=== PATIENT | male | born 1925 | race Caucasian/White ===

== ENCOUNTER → 2016-07-07 | Outpatient (CLI) | payer MEDICARE, OTHER ==
[~2016-07-07] MED LIST: ATOR10TA PO; BIMA2.5D OP; CLON-364 PO; DORZ10DR7 OP; FINA5TAB4 PO; FURO-92 PO; IPRA15SP INH; LISI5TAB7 PO; MECL25TA4 PO; POLY17PO5 PO; SERT50TA5 PO; TEST200V21 INJ; VARD20TA2 PO; WARF5TAB7 PO
== END | disposition home or self-care (01) ==
LOC: CVU 15:03
PROVIDERS: ATTEND Internal Medicine Cardiovascular Disease
DX: I08.3 Combined rheumatic disorders of mitral, aortic and tricuspid valves (principal); I51.7 Cardiomegaly; I37.1 Nonrheumatic pulmonary valve insufficiency; L97.524 Non-pressure chronic ulcer of other part of left foot with necrosis of bone
CPT/HCPCS: 93306; 93925

== ENCOUNTER 2016-07-25 16:34 | Inpatient (IN) | payer MEDICARE, OTHER ==
[2016-07-24 23:00] VITALS: BP 156/90
[~2016-07-25] VITALS: Ht 182.9 cm; Wt 66.9 kg
[2016-07-25] MEDS ORDERED: SODIUM CHLORIDE FLUSH 10ML SYR IVF ONE (17:00)
[2016-07-25 18:55] LABS: BLOOD UREA NITROGEN 17 mg/dL (7-18)
[2016-07-25 19:01] LABS: ASPARTATE AMINO TRANSFERASE 22 U/L (15-37)
[2016-07-25 19:02] LABS: IS PT STATUS REG ER OR PRE ER? YES
[2016-07-25] MEDS ORDERED: ARICEPT (19:43)
[2016-07-25] MEDS ORDERED: DONE10TA30 PO (19:43)
[2016-07-25] MEDS ORDERED: APIX5TAB PO (19:43)
[2016-07-25] MEDS ORDERED: POLYETHYLENE GLYCOL 17 GM PACKET PO PRN (21:00)
[2016-07-25] MEDS ORDERED: VARDENAFIL HCL 20 MG PO SCH ×2 (21:00→22:12)
[2016-07-25] MEDS ORDERED: TESTOSTERONE ENANTHATE INJ SCH (21:00)
[2016-07-25] MEDS ORDERED: ACETAMINOPHEN 325 MG TABLET PO PRN (21:00)
[2016-07-25] MEDS ORDERED: BISACODYL 10 MG SUPP PR PRN (21:00)
[2016-07-25] MEDS ORDERED: ONDANSETRON 2MG/ML, 2ML IVPush PRN (21:00)
[2016-07-25] MEDS ORDERED: DIAZEPAM 2 MG TABLET PO PRN (21:00)
[2016-07-25] MEDS: SODIUM CHLORIDE FLUSH 3ML SYRINGE IVF SCH (21:00)
[2016-07-25] MEDS ORDERED: TEMPLATE NON-FORMULARY MED. (Dorzolamide Hcl/Timolol Maleat (Dorzolamide-Timolol Eye Drops OP SCH (21:00)
[2016-07-25] MEDS ORDERED: MECLIZINE 12.5 MG TABLET PO PRN (21:00)
[2016-07-25] MEDS: IPRATROPIUM NASAL 0.03%, 30ML NAS SCH (21:00)
[2016-07-25] MEDS ORDERED: POLYETHYLENE GLYCOL 17 GM PACKET PO SCH (21:00)
[2016-07-25 23:00] VITALS: BP 156/90
[2016-07-26] MEDS: APIXABAN 5 MG TABLET PO SCH ×3 (00:17→21:18)
[2016-07-26] MEDS: ATORVASTATIN 10 MG TABLET PO SCH ×2 (00:17→21:18)
[2016-07-26] MEDS: DONEPEZIL 10 MG TABLET PO SCH ×2 (00:17→21:18)
[2016-07-26 02:00] VITALS: BP 102/63
[2016-07-26] MEDS ORDERED: ASPIRIN 325 MG TABLET EC PO SCH (06:00)
[2016-07-26 06:19] LABS: BLOOD UREA NITROGEN 16 mg/dL (7-18)
[2016-07-26 06:23] LABS: ASPARTATE AMINO TRANSFERASE 16 U/L (15-37)
[2016-07-26 07:24] VITALS: BP 142/87
[2016-07-26] MEDS: TEMPLATE NON-FORMULARY MED. (Dorzolamide Hcl/Timolol Maleat (Dorzolamide-Timolol Eye Drops OP SCH ×2 (09:00→20:35)
[2016-07-26] MEDS: SODIUM CHLORIDE FLUSH 3ML SYRINGE IVF SCH ×2 (09:00→21:00)
[2016-07-26] MEDS: SERTRALINE 50MG TABLET PO SCH (09:06)
[2016-07-26] MEDS: LISINOPRIL 5 MG TABLET PO SCH (09:06)
[2016-07-26] MEDS: FUROSEMIDE 40 MG TABLET PO SCH (09:06)
[2016-07-26] MEDS: FINASTERIDE 5 MG TABLET PO SCH (09:06)
[2016-07-26] MEDS: SENNA/DOCUSATE TABLET PO SCH (09:06)
[2016-07-26] MEDS: IPRATROPIUM NASAL 0.03%, 30ML NAS SCH ×2 (10:10→21:19)
[2016-07-26] MEDS: LATANOPROST OPHTH 0.005%, 2.5ML OP SCH (10:11)
[2016-07-26 12:40] VITALS: BP 156/91
[2016-07-26] MEDS ORDERED: CARB1TAB PO (14:43)
[2016-07-26] MEDS: CARBIDOPA/LEVODOPA 10 MG/100 MG TABLET PO SCH ×2 (15:41→21:18)
[2016-07-26 16:51] LABS: IS PT STATUS REG ER OR PRE ER? NO
[2016-07-26 18:43] VITALS: BP 152/78
[2016-07-26 21:44] LABS: IS PT STATUS REG ER OR PRE ER? NO
[2016-07-27 05:01] VITALS: BP 136/85
[2016-07-27 06:44] LABS: BLOOD UREA NITROGEN 17 mg/dL (7-18)
[2016-07-27 06:48] LABS: ASPARTATE AMINO TRANSFERASE 16 U/L (15-37)
[2016-07-27 07:43] VITALS: BP 140/84
[2016-07-27] MEDS: IPRATROPIUM NASAL 0.03%, 30ML NAS SCH ×2 (08:02→21:19)
[2016-07-27] MEDS: SODIUM CHLORIDE FLUSH 3ML SYRINGE IVF SCH ×2 (08:03→21:20)
[2016-07-27] MEDS: LATANOPROST OPHTH 0.005%, 2.5ML OP SCH (08:03)
[2016-07-27] MEDS: CARBIDOPA/LEVODOPA 10 MG/100 MG TABLET PO SCH (08:04)
[2016-07-27] MEDS: APIXABAN 5 MG TABLET PO SCH ×2 (08:05→21:16)
[2016-07-27] MEDS: LISINOPRIL 5 MG TABLET PO SCH (08:05)
[2016-07-27] MEDS: FUROSEMIDE 40 MG TABLET PO SCH (08:06)
[2016-07-27] MEDS: FINASTERIDE 5 MG TABLET PO SCH (08:07)
[2016-07-27] MEDS: SENNA/DOCUSATE TABLET PO SCH (08:07)
[2016-07-27] MEDS: SERTRALINE 50MG TABLET PO SCH (08:07)
[2016-07-27] MEDS: TEMPLATE NON-FORMULARY MED. (Dorzolamide Hcl/Timolol Maleat (Dorzolamide-Timolol Eye Drops OP SCH ×2 (08:09→21:19)
[2016-07-27 14:50] VITALS: BP 157/91
[2016-07-27] MEDS: SODIUM CHLORIDE 0.9% 1,000 ML IV SCH (16:01)
[2016-07-27] MEDS: LACTOBACILLUS CHEW TABLET PO SCH ×2 (16:20→21:17)
[2016-07-27] MEDS: CARBIDOPA/LEVODOPA 25 MG/100 MG TABLET PO SCH ×2 (16:22→21:16)
[2016-07-27 19:45] VITALS: BP 120/65
[2016-07-27] MEDS ORDERED: CARBIDOPA/LEVODOPA CR 25 MG/100 MG TABLET PO SCH (21:00)
[2016-07-27] MEDS: DONEPEZIL 10 MG TABLET PO SCH (21:16)
[2016-07-27] MEDS: ATORVASTATIN 10 MG TABLET PO SCH (21:17)
[2016-07-28] MEDS: SODIUM CHLORIDE 0.9% 1,000 ML IV SCH (00:11)
[2016-07-28] MEDS ORDERED: OMNIPAQUE 350 MG/ML, 100ML BOTTLE ONE (01:09)
[2016-07-28 02:04] VITALS: BP 123/76
[2016-07-28] MEDS: CARBIDOPA/LEVODOPA 25 MG/100 MG TABLET PO SCH (06:00)
[2016-07-28] MEDS: LACTOBACILLUS CHEW TABLET PO SCH ×4 (06:00→21:00)
[2016-07-28 06:39] LABS: BLOOD UREA NITROGEN 14 mg/dL (7-18)
[2016-07-28] MEDS: TEMPLATE NON-FORMULARY MED. (Dorzolamide Hcl/Timolol Maleat (Dorzolamide-Timolol Eye Drops OP SCH ×2 (08:45→21:00)
[2016-07-28] MEDS: FINASTERIDE 5 MG TABLET PO SCH (08:45)
[2016-07-28] MEDS: FUROSEMIDE 40 MG TABLET PO SCH (08:45)
[2016-07-28] MEDS: APIXABAN 5 MG TABLET PO SCH ×2 (08:45→21:00)
[2016-07-28] MEDS: SODIUM CHLORIDE FLUSH 3ML SYRINGE IVF SCH ×2 (08:45→21:00)
[2016-07-28] MEDS: CARBIDOPA/LEVODOPA 10 MG/100 MG TABLET PO SCH ×3 (11:25→21:00)
[2016-07-28] MEDS: DONEPEZIL 10 MG TABLET PO SCH (21:00)
[2016-07-28] MEDS: ATORVASTATIN 10 MG TABLET PO SCH (21:00)
[2016-07-28] MEDS ORDERED: CARBIDOPA/LEVODOPA 25 MG/100 MG TABLET PO SCH (21:00)
[2016-07-29] MEDS: LACTOBACILLUS CHEW TABLET PO SCH ×4 (06:40→16:00)
[2016-07-29] MEDS: CARBIDOPA/LEVODOPA 10 MG/100 MG TABLET PO SCH ×3 (06:40→17:34)
[2016-07-29 06:55] VITALS: BP 149/97
[2016-07-29] MEDS: SERTRALINE 50MG TABLET PO SCH ×2 (08:45→09:00)
[2016-07-29] MEDS: LISINOPRIL 5 MG TABLET PO SCH ×2 (08:45→09:00)
[2016-07-29] MEDS: FINASTERIDE 5 MG TABLET PO SCH (09:00)
[2016-07-29] MEDS: LATANOPROST OPHTH 0.005%, 2.5ML OP SCH (09:00)
[2016-07-29] MEDS: APIXABAN 5 MG TABLET PO SCH (09:00)
[2016-07-29] MEDS: SENNA/DOCUSATE TABLET PO SCH (09:00)
[2016-07-29] MEDS: SODIUM CHLORIDE FLUSH 3ML SYRINGE IVF SCH (09:00)
[2016-07-29] MEDS: FUROSEMIDE 40 MG TABLET PO SCH (09:00)
[2016-07-29] MEDS: TEMPLATE NON-FORMULARY MED. (Dorzolamide Hcl/Timolol Maleat (Dorzolamide-Timolol Eye Drops OP SCH (09:00)
[2016-07-29 13:20] VITALS: BP 142/83
[2016-07-29] MEDS ORDERED: CARB1TAB20 PO (15:12)
[2016-07-29] MEDS ORDERED: CARB1TAB22 PO (15:12)
== END 2016-07-29 19:00 | DRG 56 ==
LOC: ED 18:46 → EDIP 19:53 → 4WST 21:57 → DCLOUNGE 07-29 18:48
PROVIDERS: ADMIT Internal Medicine; ATTEND Internal Medicine
DX: G20 Parkinson's disease (principal); E43 Unspecified severe protein-calorie malnutrition; D68.69 Other thrombophilia; I42.0 Dilated cardiomyopathy; I50.22 Chronic systolic (congestive) heart failure; I38 Endocarditis, valve unspecified; R27.0 Ataxia, unspecified; E78.5 Hyperlipidemia, unspecified; H40.9 Unspecified glaucoma; H91.90 Unspecified hearing loss, unspecified ear; I11.0 Hypertensive heart disease with heart failure; I27.2 Other secondary pulmonary hypertension; I48.91 Unspecified atrial fibrillation; N40.0 Benign prostatic hyperplasia without lower urinary tract symptoms; Z79.01 Long term (current) use of anticoagulants; Z82.0 Family history of epilepsy and other diseases of the nervous system; Z85.820 Personal history of malignant melanoma of skin; Z95.0 Presence of cardiac pacemaker
CPT/HCPCS: 36415; 70450; 70496; 70498; 71010; 80048; 80053; 81003; 83735; 84484; 85025; 87324; 93005; 99285; Q9967; 92523-GN; J7030

== ENCOUNTER 2017-01-05 13:20 | Inpatient (IN) | payer MEDICARE, OTHER ==
[~2017-01-05] VITALS: Ht 182.9 cm; Wt 65.2 kg
[~2017-01-05 13:20] MED LIST changes: +APIX5TAB PO; +ARICEPT; +CARB1TAB PO; +CARB1TAB20 PO; +CARB1TAB22 PO; +DONE10TA56 PO
[2017-01-05 13:47] LABS: HEMATOCRIT 49.7 % (39.2-51.8); HEMOGLOBIN 16.4 g/dL (13.7-18.0)
[2017-01-05] MEDS ORDERED: APIX5TAB PO (14:27)
[2017-01-05] MEDS ORDERED: IBUPROFEN 200 MG TABLET PO ONE (14:30)
[2017-01-05] MEDS ORDERED: SODIUM CHLORIDE 0.9% 1,000 ML IV ONE (15:02)
[2017-01-05] MEDS ORDERED: SODIUM CHLORIDE FLUSH 10ML SYR IVF PRN (15:30)
[2017-01-05 16:50] VITALS: BP 171/88
[2017-01-05] MEDS ORDERED: ONDANSETRON 2MG/ML, 2ML IVPush PRN (17:00)
[2017-01-05] MEDS ORDERED: TRAZODONE 50MG TABLET PO PRN (17:00)
[2017-01-05] MEDS ORDERED: DOCUSATE 100 MG CAPSULE PO PRN (17:00)
[2017-01-05] MEDS ORDERED: ONDANSETRON ODT 4 MG PO PRN (17:00)
[2017-01-05] MEDS ORDERED: BISACODYL 10 MG SUPP PR PRN (17:00)
[2017-01-05] MEDS ORDERED: ENOXAPARIN 40 MG/0.4 ML SQ SCH (17:00)
[2017-01-05] MEDS ORDERED: POLYETHYLENE GLYCOL 17 GM PACKET PO PRN (17:00)
[2017-01-05] MEDS ORDERED: LABETALOL 5MG/ML, 20ML IVPush PRN ×2 (17:00)
[2017-01-05] MEDS ORDERED: hydrALAzine 20 MG/ML, 1ML IVPush PRN (17:00)
[2017-01-05] MEDS ORDERED: ACETAMINOPHEN 325 MG TABLET PO PRN (17:00)
[2017-01-05 19:38] VITALS: BP 148/89
[2017-01-05] MEDS: ATORVASTATIN 10 MG TABLET PO SCH ×2 (21:00→21:55)
[2017-01-05] MEDS ORDERED: LEVETIRACETAM 500 MG TABLET PO SCH (21:00)
[2017-01-05] MEDS: POLYETHYLENE GLYCOL 17 GM PACKET PO SCH (21:00)
[2017-01-05] MEDS ORDERED: APIXABAN 5 MG TABLET PO SCH (21:00)
[2017-01-05] MEDS: IPRATROPIUM 0.5 MG/2.5 ML INHA HHN SCH (21:00)
[2017-01-05] MEDS ORDERED: IPRATROPIUM BROMIDE INH SCH (21:00)
[2017-01-05] MEDS ORDERED: OMNIPAQUE 350 MG/ML, 100ML BOTTLE ONE (21:28)
[2017-01-05] MEDS: CARBIDOPA/LEVODOPA 25 MG/100 MG TABLET PO SCH (21:54)
[2017-01-05] MEDS: APIXABAN 5 MG TABLET PO SCH (21:54)
[2017-01-05] MEDS: FAMOTIDINE 20 MG TABLET PO SCH (21:54)
[2017-01-05] MEDS: CARBIDOPA/LEVODOPA 10 MG/100 MG TABLET PO SCH (21:54)
[2017-01-05] MEDS: DONEPEZIL 10 MG TABLET PO SCH (21:55)
[2017-01-06] VITALS (7 sets, daily range): BP systolic 69–144; BP diastolic 42–82
[2017-01-06 05:15] LABS: HEMATOCRIT 44.1 % (39.2-51.8); HEMOGLOBIN 14.7 g/dL (13.7-18.0)
[2017-01-06 05:27] LABS: BLOOD UREA NITROGEN 17 mg/dL (7-18)
[2017-01-06] MEDS: CARBIDOPA/LEVODOPA 10 MG/100 MG TABLET PO SCH ×4 (06:07→22:02)
[2017-01-06] MEDS: IPRATROPIUM 0.5 MG/2.5 ML INHA HHN SCH ×2 (09:00→19:30)
[2017-01-06] MEDS: POLYETHYLENE GLYCOL 17 GM PACKET PO SCH (09:00)
[2017-01-06] MEDS: FAMOTIDINE 20 MG TABLET PO SCH ×2 (10:00→22:00)
[2017-01-06] MEDS: FUROSEMIDE 40 MG TABLET PO SCH (10:00)
[2017-01-06] MEDS: APIXABAN 5 MG TABLET PO SCH ×2 (10:00→21:59)
[2017-01-06] MEDS: SERTRALINE 50MG TABLET PO SCH (10:01)
[2017-01-06] MEDS: FINASTERIDE 5 MG TABLET PO SCH (10:01)
[2017-01-06] MEDS: LISINOPRIL 5 MG TABLET PO SCH (10:01)
[2017-01-06] MEDS: DUREZOL LEFTEYE SCH ×3 (15:00→22:01)
[2017-01-06] MEDS: TIMOLOL OPHTH 0.5%, 5ML LEFTEYE SCH (16:26)
[2017-01-06] MEDS: DORZOLAMIDE OPHTH 2%, 10ML LEFTEYE SCH (16:26)
[2017-01-06] MEDS: ATORVASTATIN 10 MG TABLET PO SCH ×2 (21:59→22:00)
[2017-01-06] MEDS: DONEPEZIL 10 MG TABLET PO SCH (22:00)
[2017-01-06] MEDS: CARBIDOPA/LEVODOPA 25 MG/100 MG TABLET PO SCH (22:00)
[2017-01-07 02:59] VITALS: BP 131/70
[2017-01-07 05:23] LABS: HEMATOCRIT 41.9 % (39.2-51.8); HEMOGLOBIN 13.9 g/dL (13.7-18.0); WHITE BLOOD COUNT 5.7 x10^3/uL (3.4-10)
[2017-01-07 05:28] LABS: BLOOD UREA NITROGEN 24 mg/dL (7-18)
[2017-01-07] MEDS: CARBIDOPA/LEVODOPA 10 MG/100 MG TABLET PO SCH ×4 (05:49→21:15)
[2017-01-07] MEDS: DUREZOL LEFTEYE SCH ×4 (06:00→21:00)
[2017-01-07] MEDS: IPRATROPIUM 0.5 MG/2.5 ML INHA HHN SCH (09:00)
[2017-01-07] MEDS: POLYETHYLENE GLYCOL 17 GM PACKET PO SCH (09:00)
[2017-01-07 09:26] VITALS: BP 149/85
[2017-01-07] MEDS: DORZOLAMIDE OPHTH 2%, 10ML LEFTEYE SCH (09:35)
[2017-01-07] MEDS: TIMOLOL OPHTH 0.5%, 5ML LEFTEYE SCH (09:35)
[2017-01-07] MEDS: LISINOPRIL 5 MG TABLET PO SCH (09:36)
[2017-01-07] MEDS: APIXABAN 5 MG TABLET PO SCH ×2 (09:36→21:16)
[2017-01-07] MEDS: FAMOTIDINE 20 MG TABLET PO SCH ×2 (09:36→21:16)
[2017-01-07] MEDS: FINASTERIDE 5 MG TABLET PO SCH (09:36)
[2017-01-07] MEDS: FUROSEMIDE 40 MG TABLET PO SCH (09:36)
[2017-01-07] MEDS: SERTRALINE 50MG TABLET PO SCH (09:36)
[2017-01-07 13:31] VITALS: BP 147/77
[2017-01-07 20:00] VITALS: BP 147/85
[2017-01-07] MEDS: ATORVASTATIN 10 MG TABLET PO SCH ×2 (20:07→21:16)
[2017-01-07] MEDS: CARBIDOPA/LEVODOPA 25 MG/100 MG TABLET PO SCH (21:16)
[2017-01-07] MEDS: DONEPEZIL 10 MG TABLET PO SCH (21:16)
[2017-01-08 02:00] VITALS: BP 159/91
[2017-01-08 05:29] LABS: HEMATOCRIT 44.8 % (39.2-51.8); HEMOGLOBIN 14.8 g/dL (13.7-18.0); WHITE BLOOD COUNT 5.3 x10^3/uL (3.4-10)
[2017-01-08] MEDS: DUREZOL LEFTEYE SCH ×2 (05:42→11:16)
[2017-01-08] MEDS: CARBIDOPA/LEVODOPA 10 MG/100 MG TABLET PO SCH ×2 (05:42→11:16)
[2017-01-08 05:44] LABS: BLOOD UREA NITROGEN 23 mg/dL (7-18)
[2017-01-08] MEDS: DORZOLAMIDE OPHTH 2%, 10ML LEFTEYE SCH (09:04)
[2017-01-08] MEDS: SERTRALINE 50MG TABLET PO SCH (09:05)
[2017-01-08] MEDS: FINASTERIDE 5 MG TABLET PO SCH (09:05)
[2017-01-08] MEDS: LISINOPRIL 5 MG TABLET PO SCH (09:05)
[2017-01-08] MEDS: APIXABAN 5 MG TABLET PO SCH (09:05)
[2017-01-08] MEDS: FUROSEMIDE 40 MG TABLET PO SCH (09:05)
[2017-01-08] MEDS: POLYETHYLENE GLYCOL 17 GM PACKET PO SCH (09:05)
[2017-01-08] MEDS: FAMOTIDINE 20 MG TABLET PO SCH (09:05)
[2017-01-08 09:08] VITALS: BP 157/89
[2017-01-08] MEDS ORDERED: DORZ10DR3 LEFTEYE (10:15)
[2017-01-08] MEDS ORDERED: TIMO5DRO5 LEFTEYE (10:15)
[2017-01-08] MEDS: TIMOLOL OPHTH 0.5%, 5ML LEFTEYE SCH (11:16)
[2017-01-08 13:59] VITALS: BP 123/75
[2017-01-08] MEDS ORDERED: METO25TA91 PO (14:16)
== END 2017-01-08 17:55 | DRG 101 ==
LOC: ED 15:01 → 4WST 15:02 → ED 15:04 → 4WST 16:29
PROVIDERS: ADMIT Hospitalist; ATTEND Hospitalist
DX: G40.909 Epilepsy, unspecified, not intractable, without status epilepticus (principal); D68.69 Other thrombophilia; G20 Parkinson's disease; C43.9 Malignant melanoma of skin, unspecified; E44.1 Mild protein-calorie malnutrition; I11.0 Hypertensive heart disease with heart failure; I50.22 Chronic systolic (congestive) heart failure; I42.0 Dilated cardiomyopathy; I27.20 Pulmonary hypertension, unspecified; I48.91 Unspecified atrial fibrillation; F03.90 Unspecified dementia, unspecified severity, without behavioral disturbance, psychotic disturbance, mood disturbance, and anxiety; N40.0 Benign prostatic hyperplasia without lower urinary tract symptoms; E78.5 Hyperlipidemia, unspecified; H40.9 Unspecified glaucoma; H91.90 Unspecified hearing loss, unspecified ear; I73.9 Peripheral vascular disease, unspecified; J44.9 Chronic obstructive pulmonary disease, unspecified; Z82.0 Family history of epilepsy and other diseases of the nervous system; R26.2 Difficulty in walking, not elsewhere classified; Z95.0 Presence of cardiac pacemaker; Z98.52 Vasectomy status
CPT/HCPCS: 36415; 70450; 70470; 71010; 80047; 80048; 80061; 82140; 82962; 84439; 84443; 85025; 85610; 85730; 93005; 93306; 93880; 95819; 99285; Q9967; 92523-GN